=== PATIENT | female | born 1980 | race Caucasian/White ===

== ENCOUNTER 2017-01-20 11:34 | Inpatient (IN) | payer OTHER ==
[2017-01-16 16:40] VITALS: BMI 40.1
[2017-01-20] MEDS ORDERED: MIDAZOLAM HCL 2 MG/2 ML SINGLE DOSE VIAL ONE (12:01)
[2017-01-20] MEDS ORDERED: ROCURONIUM BROMIDE 50 MG/5 ML VIAL ONE ×2 (12:02→15:31)
[2017-01-20] MEDS ORDERED: DEXAMETHASONE SOD PHOSPHATE 4 MG/1 ML VIAL ONE (12:02)
[2017-01-20] MEDS ORDERED: ceFAZolin SODIUM 1 GM VIAL ONE (12:02)
[2017-01-20] MEDS ORDERED: PROPOFOL 20 ML ONE (12:02)
[2017-01-20] MEDS ORDERED: SODIUM CHLORIDE 0.9% P/F 10 ML VIAL IJ ONE (12:05)
[2017-01-20] MEDS ORDERED: HYDROmorphone HCL/PF 1 MG/ML VIAL (FOR PYXIS CHARGING ONLY) ONE (12:51)
[2017-01-20] MEDS ORDERED: GLYCOPYRROLATE 0.2 MG/1 ML VIAL ONE (13:38)
[2017-01-20] MEDS ORDERED: NEOSTIGMINE METHYLSULFATE 0.5 MG/ML - 10 ML MDV ONE (13:38)
[2017-01-20] MEDS ORDERED: BUPIVACAINE HCL/PF 0.5% (5MG/ML) 10 ML VIAL ONE (14:39)
--- NOTE | 2017-01-20 15:12 | HP ---
Admitting History and Physical - Admission Chief Complaint: Morbid Obesity History Source: Patient Limitations to Obtaining History: No Limitations - Past Medical History ...LMP: 12/29/16 - Past Surgical History Past Surgical History: Yes: None - Advance Directives Advance Directives: Yes: Living Will, Health Care Proxy - Smoking History Smoking history: Never smoked Have you smoked in the past 12 months: No - Alcohol/Substance Use Hx Alcohol Use: Yes (OCCAS) History of Substance Use: reports: None - Social History History of Recent Travel: No Home Medications - Allergies Allergies/Adverse Reactions: Allergies Allergy/AdvReac Type Severity Reaction Status Date / Time No Known Allergies Allergy Verified 01/16/17 16:43 - Home Medications Home Medications: Ambulatory Orders Naproxen [Naprosyn -] 250 mg PO PRN PRN 01/16/17 Famotidine [Pepcid] 20 mg PO BID #60 tablet 01/20/17 Oxycodone HCl/Acetaminophen [Percocet 5-325 mg Tablet] 1 - 2 tab PO Q6H #28 tab MDD 4 01/20/17 Family Disease History - Family Disease History Family Disease History: Other: Father (htn), Mother (htn) Review of Systems - Review of Systems Constitutional: denies: Chills, Fever HENT: reports: No Symptoms Neck: reports: No Symptoms Cardiovascular: denies: Chest Pain Respiratory: denies: Cough Gastrointestinal: denies: Abdominal Pain Neurological: denies: Change in LOC Pain Intensity: 0 Physical Examination Vital Signs: Vital Signs Temperature 98.0 F 01/20/17 12:39 Pulse Rate 66 01/20/17 12:39 Respiratory Rate 18 01/20/17 12:39 Blood Pressure 125/56 01/20/17 12:39 O2 Sat by Pulse Oximetry (%) 100 01/20/17 12:39 Constitutional: Yes: Calm HENT: Yes: WNL Neck: Yes: Supple Cardiovascular: Yes: Regular Rate and Rhythm Respiratory: Yes: CTA Bilaterally Gastrointestinal: Yes: Soft, Abdomen, Obese Extremities: Yes: WNL Neurological: Yes: Alert, Oriented Problem List - Problems (1) Morbid obesity due to excess calories Code(s): E66.01 - MORBID (SEVERE) OBESITY DUE TO EXCESS CALORIES Assessment/Plan Morbid obesity For robotic vertical sleeve gastrectomy possible endoscopy, possible liver biopsy Risks and benefits explained
[2017-01-20] MEDS ORDERED: ceFAZolin SODIUM 1 GM VIAL IVPB ONE (15:30)
[2017-01-20] MEDS ORDERED: BUPIVACAINE HCL/PF 0.5% (5MG/ML) 10 ML VIAL IJ ONE ×2 (16:02→16:54)
[2017-01-20] MEDS ORDERED: PROMETHAZINE HCL 25 MG/1 ML VIAL IVPUSH PRN (16:10)
--- NOTE | 2017-01-20 16:56 | OP ---
Operative Note - Note: Operative Date: 01/20/17 Pre-Operative Diagnosis: Morbid obesity Operation: Robotic vertical sleeve gastrectomy, upper endoscopy/EGD Post-Operative Diagnosis: Same as Pre-op Surgeon: Raúl Estrada Shingle Trimmer: Brittaney Kimbrough Anesthesia: General Specimens Removed: Greater curvature of stomach Estimated Blood Loss (mls): 30 Drains & Tubes with Location: 36 Fr Bougie Operative Report Dictated: Yes
[2017-01-20] MEDS ORDERED: ACETAMINOPHEN 1000 MG/100 ML VIAL (NON FORMULARY) IVPB SCH ×2 (17:00→17:24)
[2017-01-20] MEDS ORDERED: ONDANSETRON 4 MG/2 ML VIAL IVPUSH SCH (17:00)
--- NOTE | 2017-01-20 17:12 | SURG ---
Surgery Jumbo Operator Note Jumbo Operator: Brittaney Kimbrough PA-C Date of Service: 01/20/17 Diagnosis: Morbid obesity Procedure: Robotic vertical sleeve gastrectomy, upper endoscopy/EGD I was present for the entirety of the operative procedure. For further detail, please refer to operative report. Visit type - Case Type Case Type: Scheduled Admission - Emergency Emergency Visit: No - New patient This patient is new to me today: Yes Date on this admission: 01/20/17
[2017-01-20] MEDS ORDERED: HYDROmorphone HCL CARPU-JECT 2 MG/1 ML DISP.SYRIN ONE ×2 (17:21→17:43)
[2017-01-20] MEDS: HYDROmorphone HCL CARPU-JECT 1 MG/1 ML DISP.SYRIN IVPUSH PRN ×4 (17:22→18:20)
[2017-01-20] MEDS ORDERED: METOCLOPRAMIDE HCL INJECTION 10 MG/2 ML VIAL ONE (17:42)
[2017-01-20] MEDS ORDERED: ACETAMINOPHEN INJECTION 100 ML IVPB ONE (17:43)
[2017-01-20] MEDS: METOCLOPRAMIDE HCL INJECTION 10 MG/2 ML VIAL IVPUSH SCH ×2 (17:50→23:35)
[2017-01-20 18:03] LABS: MCH 29.7 pg (25.7-33.7); MCHC 33.3 g/dl (32.0-36.0); MEAN CELL VOLUME 89.2 fl (80-96); MEAN PLT VOLUME 9.1 fl (7.5-11.1); PLATELET COUNT 226 K/MM3 (134-434); RDW 12.9 % (11.6-15.6); WHITE BLOOD COUNT 15.9 K/mm3 (4.0-10.0)
[2017-01-20 18:24] LABS: ALBUMIN 3.2 g/dl (3.4-5.0); ANION GAP 11 (8-16); BILIRUBIN,TOTAL 0.3 mg/dL (0.2-1.0); CALCIUM 7.5 mg/dL (8.5-10.1); CO2 23 mmol/L (21-32); CREATININE 0.8 mg/dL (0.55-1.02); GLUCOSE,RANDOM 150 mg/dL (74-106); SGOT/AST 26 U/L (15-37); SGPT/ALT 40 U/L (12-78); TOT PROT 6.6 g/dl (6.4-8.2)
[2017-01-20 18:25] LABS: ALK PHOS 53 U/L (45-117)
[2017-01-20] MEDS: SODIUM CHLORIDE 1,000 ML IV SCH (18:27)
--- NOTE | 2017-01-20 20:09 | SPEC ---
DATE OF OPERATION: 01/20/2017 SURGEON: Raúl Estrada M.D. RETAIL CLIENT SOLUTIONS ANALYST: Jayda Arreola PREOPERATIVE DIAGNOSIS: Morbid obesity. POSTOPERATIVE DIAGNOSIS: Morbid obesity. PROCEDURE: Robotic vertical sleeve gastrectomy and upper endoscopy. SPECIMENS: Greater curvature of the stomach. ESTIMATED BLOOD LOSS: 30 mL. DRAINS: None. ANESTHESIA: GET. BOUGIE: A 36-[place] bougie. REASON FOR THE PROCEDURE: This 36-year-old female presents for weight loss options. After describing different options, decided to proceed with a robotic vertical sleeve gastrectomy and upper endoscopy. The risks and benefits of the procedure are explained. RISKS AND BENEFITS: After describing the different options for management of weight loss, the patient decided to proceed with a robotic laparoscopic, possible open vertical sleeve gastrectomy. The patient was seen by the respective subspecialties and cleared for surgery. The risks and benefits of the procedure were explained. These included bleeding, infection, hernia, MN, DVT, PE, injury to surrounding structures including the liver, colon, bowel, spleen, esophagus, vessel injury, nerve injury, weight regain, gastric leak, staple line leak, sleeve leak, obstruction, vitamin deficiency, hair loss, and as some of the possible complications. The patient understood and signed informed consent. DESCRIPTION OF PROCEDURE: The patient was placed supine on the operating room table. The patient underwent general endotracheal intubation. A Chandler catheter was inserted by the nursing staff. The arms were brought out at 90 degrees and secured. A foot board was placed, and the legs were secured laterally with padding. The abdomen was prepped and draped in the usual sterile fashion. Timeout was performed. An incision was made superior and to the left of the umbilicus. A Veress needle was inserted. Pneumoperitoneum was established. Subsequently, the Veress needle was removed. An 8-mm optical robotic trocar was placed under direct visualization with the laparoscope. Inspection of the abdominal cavity was performed. An 8-mm trocar was then placed in the left abdominal wall approximately 6 to 7 cm to the left of the initial trocar. A 12-mm robotic trocar was then placed in the right abdominal wall approximately 6 to 7 cm to the right of the initial trocar and an 8-mm robotic trocar placed 6 to 7 cm lateral to the 12-mm trocar. A stab wound was made in the subxiphoid area and a Jessenia clamp inserted and removed to dilate the tract. A Andrzej liver retractor was inserted. The post was secured at the bedside by the nursing staff. The patient was placed in steep reverse Trendelenburg position, and the Andrzej liver retractor was used to secure the liver towards the anterior abdominal wall. The robot was brought over the field and docked. Dissection was then performed at the console. The pylorus was identified and 6 cm proximal to it, the lesser sac was entered using the vessel sealer. From this point cephalad, all lateral attachments to the greater curvature of the stomach, including the short gastric vessels, were ligated using the vessel sealer towards the gastrosplenic and gastrophrenic ligaments. Once this was done in its entirety, all tubes within the nasal or oropharyngeal cavity, including a temperature probe, were confirmed to have been removed by Anesthesia. The bougie was then inserted by Anesthesia. Transection of the stomach was then begun, staying adjacent to the bougie but away from the angularis. Transection of the stomach was performed near the portion of the stomach where the lesser sac was entered. Two robotic green erick were used at this location. Robotic blue erick were then used for the remainder of the transection until the greater curvature of the stomach was fully transected. Again, this was done staying close to the bougie. Care was taken to stay away from the angle of His cephalad. The staple line was then inspected. Hemostasis was identified. A leak test was then performed. The stomach was clamped distally to the staple line. Irrigation solution was placed in the left upper quadrant and air insufflated by Anesthesia into the sleeve. No leaks were identified and no obstruction was identified. This was done throughout the entirety of the staple line. At this point, the irrigation solution was suctioned and again hemostasis noted. The robotic instruments were then removed. The robot was undocked and removed from the operative field. The 12-mm robotic trocar was removed and the specimen removed from this site using a sponge stick steele. The specimen was inspected and the Veress needle inserted. The specimen insufflated adequately and no leak was identified. The staple line was noted to be straight and intact. A Lalit-Candido device was then used to close the fascia with a 0 Vicryl suture at this site. The liver retractor was removed under direct visualization. Pneumoperitoneum was desufflated, and the fascial suture was secured. Hemostasis was noted at all incision sites, and Marcaine was injected at all incision sites. All incision sites were closed using 4-0 Biosyns. Sterile dressings were applied. The patient tolerated the procedure well and was transferred to the recovery room in stable condition, with the Chandler catheter intact. The patient was sent to the telemetry unit for monitoring. In addition, an upper endoscopy was performed to further evaluate the gastric sleeve. The entirety of the staple line was inspected along with the esophagus, gastroesophageal junction, and remainder of the sleeve/stomach. Staple line was noted to be fully intact without leak or obstruction. The endoscope was fully removed. Patient tolerated the procedure well and transferred to recovery room in stable condition. Rafael [id number] MTDSergio
[2017-01-20] MEDS: ONDANSETRON 4 MG/2 ML VIAL IVPUSH SCH (21:00)
[2017-01-20] MEDS ORDERED: ONDANSETRON 4 MG/2 ML VIAL ONE (21:05)
[2017-01-20] MEDS: ACETAMINOPHEN 1000 MG/100 ML VIAL (NON FORMULARY) IVPB SCH (22:59)
[2017-01-20] MEDS: ENOXAPARIN NA (PORCINE) 40 MG/0.4 ML DISP.SYRIN SQ SCH (23:35)
[2017-01-20] MEDS: FAMOTIDINE 20 MG/50 ML IVPB 50 ML IVPB SCH (23:35)
[2017-01-20] MEDS: HYDROmorphone HCL CARPU-JECT 1 MG/1 ML DISP.SYRIN IVPB PRN (23:36)
[2017-01-21] MEDS: ONDANSETRON 4 MG/2 ML VIAL IVPUSH SCH ×5 (01:11→17:39)
[2017-01-21] MEDS: ACETAMINOPHEN 1000 MG/100 ML VIAL (NON FORMULARY) IVPB SCH ×2 (01:11→11:52)
[2017-01-21] MEDS: HYDROmorphone HCL CARPU-JECT 1 MG/1 ML DISP.SYRIN IVPB PRN ×3 (03:51→17:38)
[2017-01-21] MEDS: HYDROmorphone HCL CARPU-JECT 1 MG/1 ML DISP.SYRIN IVPUSH PRN (08:02)
[2017-01-21 08:21] LABS: MCH 29.7 pg (25.7-33.7); MCHC 32.9 g/dl (32.0-36.0); MEAN CELL VOLUME 90.3 fl (80-96); PLATELET COUNT 211 K/MM3 (134-434); WHITE BLOOD COUNT 14.9 K/mm3 (4.0-10.0)
[2017-01-21 09:32] LABS: ALBUMIN 3.1 g/dl (3.4-5.0); ALK PHOS 51 U/L (45-117); ANION GAP 11 (8-16); BILIRUBIN,TOTAL 0.5 mg/dL (0.2-1.0); CALCIUM 7.4 mg/dL (8.5-10.1); CO2 21 mmol/L (21-32); CREATININE 0.6 mg/dL (0.55-1.02); GLUCOSE,RANDOM 95 mg/dL (74-106); SGOT/AST 34 U/L (15-37); SGPT/ALT 36 U/L (12-78); TOT PROT 6.4 g/dl (6.4-8.2)
[2017-01-21] MEDS ORDERED: ACETAMINOPHEN 325 MG TABLET (FP) PO PRN (09:58)
[2017-01-21] MEDS ORDERED: SODIUM CHLORIDE 1,000 ML IV SCH (10:00)
--- NOTE | 2017-01-21 10:09 | PN ---
Progress Note (short form) - Note Progress Note: POD#1 Pt with complaints of nausea/right upper abd and shoulder pain. OOB and ambulating in the hallways. Vital Signs Period Temp Pulse Resp BP Sys/Campbell Pulse Ox Last 24 Hr 97.5 F-98.5 F 57-100 10-22 95-141/28-73 95-100 GEN: A&0x3, NAD CV: RRR Lungs: CTA b/l ABD: Inc c/d/i, soft, non-distended, inc tenderness. LE: no calf tenderness or swelling noted b/l CBC, BMP /10/30 05:35 01/21/17 05:35 UGI: no leak/obstruction A/P: 36 y female s/p robotic assisted sleeve gastrectomy UGi negative-begin bariatric POD#1 diet oob/ambulate DVT ppx with SCD/lovenox SQ oral pain managment <Brittaney Kimbrough - Last Filed: 01/21/17 10:10> - Note Progress Note: Agree Some right shoulder pain No nausea Abd soft UGI- no leak/obstruction Clears OOB <Raúl Estrada - Last Filed: 01/21/17 11:14> Problem List - Problems (1) Morbid obesity due to excess calories Code(s): E66.01 - MORBID (SEVERE) OBESITY DUE TO EXCESS CALORIES <Raúl Estrada - Last Filed: 01/21/17 11:14>
[2017-01-21] MEDS: FAMOTIDINE 20 MG/50 ML IVPB 50 ML IVPB SCH (10:40)
[2017-01-21] MEDS: ENOXAPARIN NA (PORCINE) 40 MG/0.4 ML DISP.SYRIN SQ SCH (10:40)
--- NOTE | 2017-01-21 10:52 | PN ---
Progress Note (short form) - Note Progress Note: Post op day#1.S/P Gastriv sleve placement under GA uneventful.Patient stable and c/o some pain for which she is on medication.No any anesthesia related problem.Patient Dc from the anesthesia care.
--- NOTE | 2017-01-21 11:16 | DS ---
Physical Examination Vital Signs: Vital Signs Temperature 97.7 F 01/21/17 07:29 Pulse Rate 57 L 01/21/17 07:29 Respiratory Rate 16 01/21/17 07:29 Blood Pressure 108/62 01/21/17 07:29 O2 Sat by Pulse Oximetry (%) 100 01/20/17 23:59 Constitutional: Yes: Calm HENT: Yes: WNL Neck: Yes: Supple Cardiovascular: Yes: Regular Rate and Rhythm Respiratory: Yes: CTA Bilaterally Gastrointestinal: Yes: Soft Neurological: Yes: Alert, Oriented Labs: CBC, BMP 01/21/17 05:35 01/21/17 05:35 Discharge Summary Reason For Visit: MORBID (SEVERE) OBESITY DUE TO EXCESS CALORIES Current Active Problems Morbid obesity due to excess calories (Acute) Procedures: Principal: Vertical sleeve gastrectomy, EGD Condition: Stable - Instructions Diet, Activity, Other Instructions: [address] [facility] Raúl Estrada M.D. [address] [place] [address], [address] [facility] [place] [address] Robotic, Bariatric and General Surgery Postoperative Instructions for Bariatric Surgery Activity: Resume normal everyday activity as tolerated. You may walk and climb stairs without any limitation. We encourage you to walk as often as you can Do not lift anything more than 10 pounds for 8 weeks. At that time, you can return to full activity, including the gym, without limitation. Do not drive a motor vehicle while taking prescribes narcotic pain medication. Wound Care: If you have a bandage in place, leave it on for 3 days. At that time you may remove the outer bandage. If there are strips of tape on the skin after removing the outer bandage, leave them in place. They will fall off by themselves. Do not remove them. If there is clear glue on the skin after removing the outer bandage, leave it in place. Do not pick at it or peel it off. You may shower after taking the outer bandage off, 3 days after your surgery. If incisions become red, warm or open, please call the office. Diet: Continue a sugar-free, non-carbonated Clear liquid diet three times a day for the first week-Stage I diet. In addition, you should drink 8 ounces of water every hour. When drinking, sips should be slow and steady, not large and quick. After the first week, call the office to be advanced to the next dietary stage. Do not advance stages until instructed. Your diet will be advanced over the phone each week. Medications/Pain Management: You may resume previous medications unless told otherwise. The pills may be swallowed whole or broken if scored. You may take the prescribed narcotic pain medication as needed. If the narcotic medication is not needed for pain control, you may take Tylenol. Avoid all other pain medications including Advil, Ibuprofen, Motrin, Aspirin, Naprosyn, Aleve, Celebrex. You will receive Pepcid. Please take this twice a day as prescribed. Dizziness,Headaches/Gas Pain: Make sure you are getting enough fluids daily. Patients on diuretics or water pills may need medication adjusted. Some fluids such as broth or Gatorade may help. Gas pains are common in the first few weeks after surgery. At times they can be worse than surgical pain. Walking can help. You can also use Mylanta, Maalox, or Gas-X. Vomiting/Nausea: This may occur if you eat too fast, don't chew, or eat too much. Go back to fluids. If the vomiting or nausea persists, call the office. Constipation/Diarrhea: You may experience a change in bowel habits. Many things affect this, including a decrease in food intake, not enough fluid and taking pain medication. Some people experience diarrhea after the barium swallow in x-ray. If either persist, call the office. Follow up: Call the office at [phone] for an appointment 2 weeks after your surgical procedure. Disposition: HOME - Home Medications Comprehensive Discharge Medication List: Ambulatory Orders Naproxen [Naprosyn -] 250 mg PO PRN PRN 01/16/17 Famotidine [Pepcid] 20 mg PO BID #60 tablet 01/20/17 Oxycodone HCl/Acetaminophen [Percocet 5-325 mg Tablet] 1 - 2 tab PO Q6H #28 tab MDD 4 01/20/17
[2017-01-21] MEDS: METOCLOPRAMIDE HCL INJECTION 10 MG/2 ML VIAL IVPUSH SCH ×2 (11:54→17:39)
[2017-01-21] MEDS: oxyCODONE HCL 5 MG TABLET PO PRN ×2 (15:26→20:04)
[2017-01-21] MEDS: SODIUM CHLORIDE 1,000 ML IV SCH (17:41)
[2017-01-21 19:53] VITALS: BP 111/81; PULSE 80; TEMP 98.4
--- NOTE | 2017-01-22 11:54 | PATH ---
Surgical Pathology Report Patient Name: COTY AMES [facility]. Rec. #: [id number] /Age/Gender: 1980 (Age: 36) / F Account: [id number] Location: 4 PEDS/ADOL Taken: 01/21/2017 Received: 01/21/2017 Reported: 01/22/2017 Physicians: Raúl Estrada M.D. Specimen(s) Received GREATER CURVATURE OF STOMACH Clinical History Morbid obesity Final Diagnosis STOMACH, GREATER CURVATURE, SLEEVE GASTRECTOMY: PORTION OF UNREMARKABLE GASTRIC FUNDUS. IMMUNOSTAIN FOR H. PYLORI IS NEGATIVE. Electronically Signed Dillon Geiger M.D. Gross Description Received in formalin, labeled "greater curvature stomach," is a 69 gram, 15.5 x 3.2 x 2.1 cm. portion of stomach with a stapled margin of resection. The serosa is maldonado-saba with minimal attached fat. The mucosa is maldonado-pink with normal folds. No mucosal masses are identified. Ratchet Setter sections are submitted in one cassette. /01/21/2017 saudi01/21/2017
== END 2017-01-21 20:21 | disposition home or self-care (01) | DRG 621 ==
LOC: JASUSAT 11:34 → EDSTATUS 13:30 → JSAMEDAYSX 16:56 → J4S 22:58
PROVIDERS: ADMIT Surgery; ATTEND Surgery
PROC: 8E0W0CZ Robotic Assisted Procedure of Trunk Region, Open Approach (ICD-10-PCS; 2017-01-20)
PROC: 0DJ08ZZ Inspection of Upper Intestinal Tract, Via Natural or Artificial Opening Endoscopic (ICD-10-PCS; 2017-01-20)
PROC: 0DB60Z3 Excision of Stomach, Open Approach, Vertical (ICD-10-PCS; principal; 2017-01-20 13:30)
DX: E66.01 Morbid (severe) obesity due to excess calories (principal); Z68.41 Body mass index [BMI] 40.0-44.9, adult
CPT/HCPCS: 36415; 74241-TC; 80053; 84703; 85027; 86850; 86900; 86901; 88305-TC; 94010; 94760

== ENCOUNTER 2018-06-05 18:29 | Emergency (ER) | payer OTHER ==
[2018-06-05 18:45] VITALS: BP 110/66; PULSE 71; TEMP 98.4; BMI 31.8
[2018-06-05] MEDS ORDERED: DEXAMETHASONE LIQUID 0.5 MG/5 ML 240 ML BULK BOTTLE PO ONE (18:58)
[2018-06-05] MEDS ORDERED: DEXAMETHASONE SOD PHOSPHATE 10 MG/1 ML VIAL ONE (19:01)
--- NOTE | 2018-06-05 19:01 | PDOC ---
History of Present Illness - General Chief Complaint: Allergic Reaction Stated Complaint: ALLERGIC REACTION Time Seen by Provider: 06/05/18 18:50 - History of Present Illness Initial Comments: 06/05/18 18:59 38-year-old female without comorbidities presents for evaluation of a rash which is been present for the last 2 days. She is unsure what brought the rash on. Past History - Past Medical History Allergies/Adverse Reactions: Allergies Allergy/AdvReac Type Severity Reaction Status Date / Time No Known Allergies Allergy Verified 06/05/18 18:42 Home Medications: Ambulatory Orders Naproxen [Naprosyn -] 250 mg PO PRN PRN 01/16/17 Famotidine [Pepcid] 20 mg PO BID #60 tablet 01/20/17 Oxycodone HCl/Acetaminophen [Percocet 5-325 mg Tablet] 1 - 2 tab PO Q6H #28 tab MDD 4 01/20/17 Anemia: Yes (15YRS AGO) Asthma: No Cancer: No Cardiac Disorders: No CVA: No COPD: No CHF: No Dementia: No Diabetes: No GI Disorders: No Disorders: No HTN: No Hypercholesterolemia: No Liver Disease: No Seizures: No Thyroid Disease: No - Reproductive History (#): 4 Para: 2 Spontaneous : 2 - Immunization History Immunization Up to Date: No - Suicide/Smoking/Psychosocial Hx Smoking History: Never smoked Have you smoked in the past 12 months: No Hx Alcohol Use: No Drug/Substance Use Hx: No Substance Use Type: Alcohol Hx Substance Use Treatment: No Review of Systems - Review of Systems Constitutional: No: Fever HEENTM: No: Throat Swelling Respiratory: No: Cough, Shortness of Breath, Wheezing Integumentary: Yes: Pruritus, Rash *Physical Exam - Vital Signs Last Vital Signs Temp Pulse Resp BP Pulse Ox 98.4 F 71 16 110/66 99 06/05/18 18:43 06/05/18 18:43 06/05/18 18:43 06/05/18 18:43 06/05/18 18:43 - Physical Exam Comments: 06/05/18 18:59 HEAD: NC/AT EYES: Conjuntiva clear Ears: Canals and TM's normal NOSE: No d/c THROAT: Moist mucous membrances, oral pharanx clear, uvula midline NECK: Supple without adenopathy CARDIAC: S1 S2 LUNGS: CTA Full and Equal breath sounds ABDOMEN: Soft NT ND MS: Full ROM in all joints without edema NEUROLOGIC: No gross sensory or motor deficits, NVID SKIN: Normal color and temperature there are raised wheals on the back and neck. Bilateral upper extremities on the flexor surfaces. No indication of secondary infection no interdigital involvement. Moderate Sedation - Procedure Monitoring Vital Signs: Procedure Monitoring Vital Signs Temperature 98.4 F 06/05/18 18:43 Pulse Rate 71 06/05/18 18:43 Respiratory Rate 16 06/05/18 18:43 Blood Pressure 110/66 06/05/18 18:43 O2 Sat by Pulse Oximetry (%) 99 06/05/18 18:43 Medical Decision Making - Medical Decision Making 06/05/18 19:00 Patient has got mild relief from itching with Claritin at home. She states Benadryl makes her too tired. I'm okay with her continuing the Claritin as directed I will give her a dose of Decadron and have her follow-up with her primary care physician in the next 1-2 days. *DC/Admit/Observation/Transfer Diagnosis at time of Disposition: Rash due to allergy - Discharge Dispostion Disposition: HOME Condition at time of disposition: Stable Decision to Admit order: No - Referrals Referrals: Kian Frederick [Primary Care Provider] - - Patient Instructions Printed Discharge Instructions: DI for Rash Additional Instructions: Return to the emergency room for worsening symptoms. Follow-up with your primary care physician in one to 2 days for further evaluation and treatment options. He may continue with Claritin as directed for itching. He will given a dose of a long-acting steroid which should resolve the rash within the next day - Post Discharge Activity
== END 2018-06-05 19:11 | disposition home or self-care (01) ==
LOC: JERFT 18:29
DX: T78.40XA Allergy, unspecified, initial encounter (principal); R21 Rash and other nonspecific skin eruption; X58.XXXA Exposure to other specified factors, initial encounter
CPT/HCPCS: 99281-25

== ENCOUNTER 2022-06-27 17:42 | Day surgery (SDC) | payer OTHER ==
[~2022-06-27 17:42] MED LIST: ceFAZolin SODIUM 1 GM VIAL IVPB ONE
[2022-06-27 18:13] VITALS: BMI 27.1
[2022-06-27 20:21] LABS: BASO % 0.8 % (0-2.0); EOS % 0.9 % (0-4.5); HEMATOCRIT 37.7 % (32.4-45.2); HEMOGLOBIN 12.9 GM/dL (10.7-15.3); LYMPH % 29.4 % (8-40); MCH 30.6 pg (25.7-33.7); MCHC 34.2 g/dl (32.0-36.0); MEAN CELL VOLUME 89.5 fl (80-96); MEAN PLT VOLUME 8.4 fl (7.5-11.1); MONO % 8.8 % (3.8-10.2); NEUT % 60.1 % (42.8-82.8); PLATELET COUNT 297 10^3/uL (134-434); RBC 4.21 M/mm3 (3.60-5.2); RDW 13.4 % (11.6-15.6); WHITE BLOOD COUNT 9.5 K/mm3 (4.0-10.0)
[2022-06-27] MEDS ORDERED: morphine CARPU-JECT 4 MG/1 ML DISP.SYRIN IVPUSH ONE (20:22)
[2022-06-27] MEDS ORDERED: ONDANSETRON 4 MG/2 ML VIAL IVPUSH ONE (20:23)
[2022-06-27] MEDS ORDERED: ONDANSETRON 4 MG/2 ML VIAL ONE (20:26)
[2022-06-27] MEDS ORDERED: morphine SULFATE 4 MG/ML VIAL ONE (20:26)
[2022-06-27 20:41] LABS: CALCIUM 9.3 mg/dL (8.5-10.1); MAGNESIUM 2.2 mg/dL (1.8-2.4)
[2022-06-27 20:45] LABS: BILIRUBIN,TOTAL 0.5 mg/dL (0.2-1); CREATININE 0.7 mg/dL (0.55-1.3)
[2022-06-27] MEDS ORDERED: PROPOFOL 20 ML ONE ×2 (21:26→23:27)
[2022-06-27] MEDS ORDERED: SUCCINYLCHOLINE CHLORIDE 200 MG/10 ML SYRINGE ONE (21:26)
[2022-06-27] MEDS ORDERED: ONDANSETRON 4 MG/2 ML VIAL IVPUSH PRN ×2 (21:42→23:33)
[2022-06-27] MEDS ORDERED: oxyCODONE HCL 5 MG TABLET PO PRN ×3 (21:42→23:34)
[2022-06-27] MEDS ORDERED: LACTATED RINGERS SOLUTION 1,000 ML IV SCH (21:45)
[2022-06-27 22:08] LABS: INR 1.23 (0.83-1.09); PROTHROMBIN TIME (PATIENT) 14.2 SEC (9.7-13.0)
[2022-06-27 22:11] LABS: ACTIVATED PTT 27.9 SECONDS (25.2-36.5)
[2022-06-27] MEDS ORDERED: MIDAZOLAM HCL 2 MG/2 ML SINGLE DOSE VIAL ONE (22:11)
[2022-06-27] MEDS ORDERED: ceFAZolin SODIUM 1 GM VIAL IVPB ONE (22:20)
[2022-06-27] MEDS ORDERED: ROCURONIUM BROMIDE 50 MG/5 ML SYRINGE ONE (22:25)
[2022-06-27] MEDS ORDERED: HYDROmorphone HCl 2 MG/ML VIAL ONE (22:35)
[2022-06-27] MEDS ORDERED: SUGAMMADEX SODIUM 200 MG/2 ML VIAL ONE (22:59)
[2022-06-27] MEDS ORDERED: IBUPROFEN 800 MG/8 ML IJ IVPB PRN (23:33)
[2022-06-27] MEDS ORDERED: IBUPROFEN 600 MG TABLET (FP) PO PRN (23:33)
[2022-06-27] MEDS ORDERED: ELECTROLYTE-148 SOLN 1,000 ML IV SCH (23:45)
[2022-06-27] MEDS ORDERED: ACETAMINOPHEN 1000 MG/100 ML BAG IVPB ONE (23:47)
[2022-06-28] MEDS ORDERED: ACETAMINOPHEN 1000 MG/100 ML BAG IVPB ONE (00:01)
[2022-06-28] MEDS ORDERED: HYDROmorphone HCl 2 MG/ML VIAL ONE (00:40)
[2022-06-28] MEDS ORDERED: HYDROmorphone HCl 2 MG/ML VIAL IVPUSH PRN (00:40)
[2022-06-28] MEDS ORDERED: HYDROmorphone HCl 2 MG/ML VIAL IVPUSH ONE (00:42)
[2022-06-28 08:39] LABS: HEMOGLOBIN 11.6 GM/dL (10.7-15.3); MCH 30.7 pg (25.7-33.7); MCHC 34.1 g/dl (32.0-36.0); MEAN CELL VOLUME 89.9 fl (80-96); MEAN PLT VOLUME 8.7 fl (7.5-11.1); PLATELET COUNT 236 10^3/uL (134-434); RBC 3.79 M/mm3 (3.60-5.2); RDW 13.5 % (11.6-15.6); WHITE BLOOD COUNT 12.2 K/mm3 (4.0-10.0)
[2022-06-28 14:38] VITALS: RESP 18
[2022-06-28 14:51] VITALS: BP 110/74; PULSE 77; TEMP 98.5
== END 2022-06-28 17:25 | disposition home or self-care (01) ==
LOC: JER 17:42 → JERBED 20:59 → UNDOADMIN 20:59 → JASUSAT 06-28 00:17 → J6S 06-28 01:27 → JASUSAT 06-28 17:25
PROVIDERS: ATTEND Obstetrics & Gynecology
PROC: 10T24ZZ Resection of Products of Conception, Ectopic, Percutaneous Endoscopic Approach (ICD-10-PCS; principal; 2022-06-28)
PROC: 0UB64ZZ Excision of Left Fallopian Tube, Percutaneous Endoscopic Approach (ICD-10-PCS; 2022-06-28)
PROC: 10D27ZZ Extraction of Products of Conception, Ectopic, Via Natural or Artificial Opening (ICD-10-PCS; 2022-06-28)
PROC: 0UPD7HZ Removal of Contraceptive Device from Uterus and Cervix, Via Natural or Artificial Opening (ICD-10-PCS; 2022-06-28)
DX: O00.102 Left tubal pregnancy without intrauterine pregnancy (principal)
CPT/HCPCS: 36415; 76817-TC; 80053; 83735; 84702; 84703; 85025; 85027; 85610; 85730; 86850; 86900; 86901; 88300-TC; 88305-TC; 93005; 93010; 94760; 99285-25; C9803-CS; U0003; U0005

== ENCOUNTER 2022-08-25 04:40 | Day surgery (SDC) | payer OTHER ==
[2022-08-21 10:17] VITALS: BMI 26.2
[2022-08-22 14:56] LABS: BASO % 0.7 % (0-2.0); EOS % 0.6 % (0-4.5); HEMATOCRIT 36.1 % (32.4-45.2); HEMOGLOBIN 11.6 GM/dL (10.7-15.3); LYMPH % 24.1 % (8-40); MCH 29.5 pg (25.7-33.7); MCHC 32.2 g/dl (32.0-36.0); MEAN CELL VOLUME 91.4 fl (80-96); MEAN PLT VOLUME 8.8 fl (7.5-11.1); NEUT % 67.6 % (42.8-82.8); PLATELET COUNT 281 10^3/uL (134-434); RBC 3.95 M/mm3 (3.60-5.2); RDW 13.5 % (11.6-15.6)
[2022-08-22 15:00] LABS: INR 1.08 (0.83-1.09); PROTHROMBIN TIME (PATIENT) 12.5 SEC (9.7-13.0)
[2022-08-22 15:03] LABS: ACTIVATED PTT 28.7 SECONDS (25.2-36.5)
[2022-08-22 15:06] LABS: CHLORIDE 110 mmol/L (98-107); POTASSIUM 3.8 mmol/L (3.5-5.1); SODIUM 143 mmol/L (136-145)
[2022-08-22 15:08] LABS: ALBUMIN 3.5 g/dl (3.4-5.0); ANION GAP 6 MMOL/L (8-16); BLOOD UREA NITROGEN 10.6 mg/dL (7-18); CALCIUM 8.9 mg/dL (8.5-10.1); CO2 27 mmol/L (21-32); GLUCOSE,RANDOM 82 mg/dL (74-106)
[2022-08-22 15:12] LABS: CREATININE 0.8 mg/dL (0.55-1.3); SGOT/AST 14 U/L (15-37); SGPT/ALT 21 U/L (13-61)
[2022-08-22 15:13] LABS: BILIRUBIN,TOTAL 0.4 mg/dL (0.2-1); TOT PROT 7.1 g/dl (6.4-8.2)
[2022-08-22 15:15] LABS: ALK PHOS 45 U/L (45-117)
[2022-08-25] MEDS ORDERED: ceFAZolin SODIUM 1 GM VIAL ONE (15:58)
[2022-08-25] MEDS ORDERED: KETOROLAC TROMETHAMINE 30 MG/1 ML VIAL ONE (15:58)
[2022-08-25] MEDS ORDERED: LIDOCAINE HCL/PF 2% SDV 5ML VIAL ONE (15:58)
[2022-08-25] MEDS ORDERED: PROPOFOL 40 ML ONE (15:58)
[2022-08-25] MEDS ORDERED: DEXAMETHASONE SOD PHOSPHATE 4 MG/1 ML VIAL ONE (15:58)
[2022-08-25] MEDS ORDERED: MIDAZOLAM HCL 2 MG/2 ML SINGLE DOSE VIAL ONE (15:58)
[2022-08-25] MEDS ORDERED: ONDANSETRON 4 MG/2 ML VIAL ONE (15:58)
[2022-08-25] MEDS ORDERED: ONDANSETRON 4 MG/2 ML VIAL IVPUSH PRN (16:19)
[2022-08-25] MEDS ORDERED: oxyCODONE HCL 5 MG TABLET PO PRN ×2 (16:19)
[2022-08-25] MEDS ORDERED: LACTATED RINGERS SOLUTION 1,000 ML IV SCH (16:30)
[2022-08-25] MEDS ORDERED: ceFAZolin SODIUM 1 GM VIAL IVPB ONE (17:15)
[2022-08-25] MEDS ORDERED: PROPOFOL 20 ML ONE (17:26)
[2022-08-25] MEDS ORDERED: ACETAMINOPHEN INJECTION 100 ML IVPB ONE (17:37)
[2022-08-25 18:21] VITALS: TEMP 98.1
[2022-08-25] MEDS ORDERED: oxyCODONE HCL 5 MG TABLET ONE ×2 (18:46→20:13)
[2022-08-25 20:31] VITALS: BP 116/57; PULSE 74; RESP 20
== END 2022-08-25 20:40 | disposition home or self-care (01) ==
LOC: JASU-SURG 04:40
PROVIDERS: ATTEND Obstetrics & Gynecology
PROC: 0U5B8ZZ Destruction of Endometrium, Via Natural or Artificial Opening Endoscopic (ICD-10-PCS; principal; 2022-08-25 14:00)
DX: N92.0 Excessive and frequent menstruation with regular cycle (principal)
CPT/HCPCS: 36415; 80053; 84702; 85025; 85610; 85730; 88305-TC; 94760